=== PATIENT | male | born 1965 | race Caucasian/White ===

== ENCOUNTER 2020-06-27 10:01 | Outpatient (CLI) | payer OTHER, SELFPAY ==
--- NOTE | ~2020-06-27 | XR_ITS ---
EXAMINATION: XR shoulder RT min 2V DATE: 06/27/2020 10:22 INDICATION: Right shoulder pain post fall TECHNIQUE: AP internally and externally rotated, AP oblique externally rotated and transscapular Y vi ews of the right shoulder were obtained. COMPARISON: None FINDINGS: Normal alignment. No fracture.Mild glenohumeral osteoarthritis with slight cephalad nonuniform joint space narrowing on the Grashey projection. Mild acromioclavicular osteoarthritis. Soft tissues are u nremarkable. IMPRESSION: Mild right acromioclavicular and glenohumeral osteoarthritis. No acute osseous abnormality. Reviewed, dictated and finalized at location A.
== END 2020-06-27 10:02 | disposition home or self-care (01) ==
DX: M25.511 Pain in right shoulder (principal)
CPT/HCPCS: 73030

== ENCOUNTER 2020-07-16 09:46 | Outpatient (CLI) | payer OTHER, SELFPAY ==
--- NOTE | ~2020-07-16 | MR_ITS ---
EXAMINATION: MR shoulder RT wo con DATE: 07/16/2020 10:54 INDICATION: Internal derangement of the right shoulder presenting with right shoulder pain and decrea sed range of motion post fall 3 weeks prior. TECHNIQUE: Magnetic resonance imaging (MRI) of the right shoulder was performed without intravenous c ontrast. Sequences included axial PD-weighted FS FSE, coronal oblique PD-weighted FS FSE, coronal obl ique T2-weighted FS FSE, sagittal PD-weighted FS FSE, and sagittal T1-weighted SE. COMPARISON: None. FINDINGS: Coracoacromial arch: The acromion undersurface is curved in morphology (type II). The coracoacromial ligament is normal. M ild acromioclavicular osteoarthritis. Rotator cuff: Mild supraspinatus and infraspinatus tendinopathy with full-thickness tear beginning at the mid super ior facet footplate of the supraspinatus tendon and extending 12 mm posteriorly into the middle facet footplate of the anterior infraspinatus tendon and measuring up to 8 mm medial to lateral. Mild to m oderate subscapularis tendinopathy without discrete tear. The teres minor tendon is normal. Normal ro tator cuff muscle bulk and signal. Biceps tendon, glenoid labrum and glenohumeral cartilage: Long head of the biceps tendon is normal. There is a linear tear extending across the base of the 10: 00-12:00 position of the posterior superior glenoid labrum. 4 x 3 x 2 mm paralabral cyst at the 11:00 rim of the glenoid. Additional more irregular degenerative tear at the 4:30-5:30 position of the ant eroinferior glenoid. Partial-thickness cartilage loss with smooth chondral surface along the cephalad third of the glenoid. Fluid: Physiologic amount of fluid in the glenohumeral joint and biceps tendon sheath. No loose osteochondra l bodies. Small amount of fluid in the subacromial/subdeltoid bursa which could be related to either mild bursitis or decompression of glenohumeral joint fluid through the full-thickness rotator cuff te ar defect. Bones: Normal marrow signal with no edema, fracture or abnormal marrow replacing process. IMPRESSION: 1. Small full-thickness tear along the footplate of the posterior supraspinatus and anterior infraspi natus tendons. 2. Degenerative tearing of the anteroinferior glenoid labrum and more well-defined linear tear at the base of the posterior superior glenoid labrum, the latter with tiny associated para labral cyst. 3. Mild glenohumeral and acromioclavicular osteoarthritis. Reviewed, dictated and finalized at location A. IMPRESSION: 1. Small full-thickness tear along the footplate of the posterior supraspinatus and anterior infraspinatus tendons. 2. Degenerative tearing of the anteroinferior glenoid labrum and more well-defi natanael linear tear at the base of the posterior superior glenoid labrum, the latte r with tiny associated para labral cyst. 3. Mild glenohumeral and acromioclavicular osteoarthritis.
== END 2020-07-16 09:47 | disposition home or self-care (01) ==
LOC: CHSIMG 09:51
DX: M24.811 Other specific joint derangements of right shoulder, not elsewhere classified (principal)
CPT/HCPCS: 73221

== ENCOUNTER 2020-07-24 08:55 | Emergency (ER) | payer OTHER, SELFPAY ==
[2020-07-24 09:02] VITALS: BP 153/86; PULSE 107; RESP 18; TEMP 36.1; O2SAT 99
--- NOTE | 2020-07-24 09:24 | ED.WOUNDLAC ---
HPI - Wound/Laceration General Chief Complaint: Wound/Laceration <Evon Rivera PA-C - Last Filed: 07/24/20 09:31> Stated Complaint: swelling on back <Evon Rivera PA-C - Last Filed: 07/24/20 09:31> Time Seen by Provider: 07/24/20 09:09 <Evon Rivera PA-C - Last Filed: 07/24/20 09:31> Source: patient <Evon Rivera PA-C - Last Filed: 07/24/20 09:31> Mode of arrival: ambulatory <Evon Rivera PA-C - Last Filed: 07/24/20 09:31> Limitations: no limitations <Evon Rivera PA-C - Last Filed: 07/24/20 09:31> History of Present Illness HPI narrative: This is a 55 year old male that presents to the ER for rectal pain x 5 days. Reports he has felt an area of swelling around the rectum. It hurts when he sits down. He wondered if he maybe had a hemorrhoid. Denies fever, hematochezia, melena, or drainage from the area. <Evon Rivera PA-C - Last Filed: 07/24/20 09:31> Related Data Allergies/Adverse Reactions: Allergies Allergy/AdvReac Type Severity Reaction Status Date / Time No Known Allergies Allergy Verified 07/24/20 09:00 <Evon Rivera PA-C - Last Filed: 07/24/20 09:31> Review of Systems Review of Systems: Narrative: CONSTITUTIONAL: Denies fever GASTROINTESTINAL: Denies abdominal pain, nausea, vomiting, or diarrhea. <Evon Rivera PA-C - Last Filed: 07/24/20 09:31> All systems reviewed & are unremarkable except as noted in HPI and below <Evon Rivera PA-C - Last Filed: 07/24/20 09:31> FOR[facility]LY [facility] Past Medical History Medical History: Medical History (Updated 07/24/20 @ 09:31 by Evon Rivera PA-C) History of seasonal allergies <Evon Rivera PA-C - Last Filed: 07/24/20 09:31> Social History Social History: Social History (Updated 07/24/20 @ 09:27 by Evon Rivera PA-C) Substance use: never <Evon Rivera PA-C - Last Filed: 07/24/20 09:31> Exam Narrative: Exam Narrative: GENERAL: Well-appearing, well-nourished, and in no acute distress. HEAD: Normocephalic, atraumatic. EYES: EOMI. EXTREMITIES: Normal range of motion. No edema. SKIN: Warm, dry, no rash. NEURO: No focal deficits. Alert and oriented x3. PSYCH: Normal mood and affect RECTAL: No obvious hemorrhoids or fissures. Small area of redness surrounding the rectum, without central fluctuance to suggest abscess <Evon Rivera PA-C - Last Filed: 07/24/20 09:31> Course Vital Signs Vital signs: Vital Signs Temperature 96.9 F L 07/24/20 09:02 Pulse Rate 107 H 07/24/20 09:02 Respiratory Rate 18 07/24/20 09:02 Blood Pressure 153/86 H 07/24/20 09:02 Pulse Oximetry 99 07/24/20 09:02 Temperature 96.9 F L 07/24/20 09:02 Pulse Rate 107 H 07/24/20 09:02 Respiratory Rate 18 07/24/20 09:02 Blood Pressure 153/86 H 07/24/20 09:02 Pulse Oximetry 99 07/24/20 09:02 <Evon Rivera PA-C - Last Filed: 07/24/20 09:31> Vital Signs Temperature 96.9 F L 07/24/20 09:02 Pulse Rate 107 H 07/24/20 09:02 Respiratory Rate 18 07/24/20 09:02 Blood Pressure 153/86 H 07/24/20 09:02 Pulse Oximetry 99 07/24/20 09:02 Temperature 96.9 F L 07/24/20 09:02 Pulse Rate 107 H 07/24/20 09:02 Respiratory Rate 18 07/24/20 09:02 Blood Pressure 153/86 H 07/24/20 09:02 Pulse Oximetry 99 07/24/20 09:02 <Mary Fernández MD - Last Filed: 07/24/20 17:19> MDM - Wound/Laceration MDM Narrative Medical decision making narrative: Patient presents to the ER for rectal pain x 5 days. He is afebrile and nontoxic appearing. No obvious hemorrhoids or fissures on exam. He does have a small area of redness which I will treat for a possible cellulitis. There is no central fluctuance to suggest an abscess at this point. He has follow up with his PCP tomorrow. He was given warnings to return to the ER <Evon Rivera PA-C - Last Filed: 07/24/20 09:31> Critical Care Time Critical Care Time Critical Care Time:
== END 2020-07-24 09:42 | disposition home or self-care (01) ==
PROVIDERS: Emergency Provider General Practice
DX: L03.317 Cellulitis of buttock (principal)
CPT/HCPCS: 99283